=== PATIENT | male | born 1995 | race Caucasian/White ===

== ENCOUNTER 2020-03-21 11:46 | Emergency (ER) | payer OTHER ==
[~2020-03-21] VITALS: Ht 177.8 cm; Wt 137.4 kg
[~2020-03-21 11:46] MED LIST: ALBU-71 IH; BLOO-571 MC; DIPDRIP IV; HUMSLIDE SQ; INSU100S53 SC; KEP500I IV; LORA2SOL IVP; MORP1SYR3 IV; ONDA2SOL74 IVP; PIPE1PDS20 IV; [UNRECOGNIZED DRUG - CODE] IV; [UNRECOGNIZED DRUG - CODE] IV; [UNRECOGNIZED DRUG - CODE] IVP
[2020-03-21 11:59] VITALS: BP 169/98
--- NOTE | 2020-03-21 12:05 | NUR ---
PT AMBULATED TO BED 4, STEADY GAIT.
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
--- NOTE | 2020-03-21 12:12 | NUR ---
PT AMBULATED TO BATHROOM, STEADY GAIT.
[2020-03-21 12:58] VITALS: BP 169/98
== END 2020-03-21 12:58 | disposition home or self-care (01) ==
LOC: MED 11:46
DX: S60.011A Contusion of right thumb without damage to nail, initial encounter (principal); E11.9 Type 2 diabetes mellitus without complications; Z79.899 Other long term (current) drug therapy; W22.8XXA Striking against or struck by other objects, initial encounter; Y93.89 Activity, other specified; Y92.89 Other specified places as the place of occurrence of the external cause; Y99.8 Other external cause status
CPT/HCPCS: 11740; 29130; 73140; 99284; Q0092; 99283